=== PATIENT | male | born 1980 | race Two or more races ===

== ENCOUNTER 2017-06-17 12:22 | Inpatient (IN) | payer OTHER ==
[~2017-06-17] VITALS: Ht 182.9 cm; Wt 120.1 kg
[~2017-06-17 12:22] MED LIST: ASPI-621 PO; ATOR-2 PO; INSU100V8 SQ; LISI5TAB7 PO; METO25TA35 PO; TICA90TA PO
[2017-06-17] MEDS ORDERED: ASPIRIN 81 MG TABLET CHEW PO ONE (13:00)
[2017-06-17] MEDS ORDERED: ASPIRIN 81 MG TABLET CHEW ONE (13:07)
[2017-06-17 13:25] LABS: HEMATOCRIT 45.5 % (39.2-51.8); HEMOGLOBIN 15.6 g/dL (13.7-18.0); WHITE BLOOD COUNT 6.4 x10^3/uL (3.4-10)
[2017-06-17] MEDS ORDERED: NITROGLYCERIN SINGLE TAB 0.4 MG SL ONE (13:27)
[2017-06-17] MEDS ORDERED: NITROGLYCERIN SINGLE TAB 0.4 MG SL PRN (13:30)
[2017-06-17 13:37] LABS: BLOOD UREA NITROGEN 12 mg/dL (7-18)
[2017-06-17 13:44] LABS: IS PT STATUS REG ER OR PRE ER? YES
[2017-06-17] MEDS ORDERED: DOCUSATE 100 MG CAPSULE PO PRN ×2 (14:30→19:00)
[2017-06-17] MEDS ORDERED: SODIUM CHLORIDE FLUSH 10ML SYR IVF PRN (14:30)
[2017-06-17] MEDS ORDERED: LABETALOL 5MG/ML, 20ML IVPush PRN ×2 (14:30→19:00)
[2017-06-17] MEDS ORDERED: ZOLPIDEM 5MG TABLET PO PRN (14:30)
[2017-06-17] MEDS ORDERED: HYDROcodone/APAP 5/325 TABLET PO PRN (14:30)
[2017-06-17] MEDS ORDERED: ONDANSETRON 2MG/ML, 2ML IVPush PRN ×2 (14:30→19:00)
[2017-06-17] MEDS ORDERED: MORPHINE SULFATE 4 MG/ML, 1ML IVPush PRN (14:30)
[2017-06-17] MEDS ORDERED: ACETAMINOPHEN 325 MG TABLET PO PRN ×2 (14:30→19:00)
[2017-06-17] MEDS ORDERED: GUAIFENESIN/DM 200-20MG, 10ML UDC PO PRN (14:30)
[2017-06-17] MEDS ORDERED: NITROGLYCERIN 0.4 MG BOTTLE (25 TABS) SL PRN (15:00)
[2017-06-17 15:23] LABS: IS PT STATUS REG ER OR PRE ER? YES
[2017-06-17 16:00] VITALS: BP 136/89
[2017-06-17] MEDS: INSULIN REGULAR 100 UNITS/ML, 3ML VIAL SQ-INSULIN SCH ×2 (16:00→21:23)
[2017-06-17] MEDS: METOPROLOL TARTRATE 25 MG TABLET PO SCH (16:51)
[2017-06-17] MEDS: TICAGRELOR 90 MG TABLET PO SCH (16:51)
[2017-06-17 19:05] VITALS: BP 126/83
[2017-06-17 20:41] LABS: IS PT STATUS REG ER OR PRE ER? NO
[2017-06-17] MEDS ORDERED: SODIUM CHLORIDE FLUSH 10ML SYR IVF SCH (21:00)
[2017-06-17] MEDS: SODIUM CHLORIDE FLUSH 10ML SYR IVF SCH (21:19)
[2017-06-17] MEDS: INSULIN DETEMIR 100 UNITS/ML, PEN SQ-INSULIN SCH (21:20)
[2017-06-18] MEDS ORDERED: D5%-0.9% NACL 500 ML IV SCH (02:00)
[2017-06-18 02:48] VITALS: BP 119/75
[2017-06-18] MEDS: METOPROLOL TARTRATE 25 MG TABLET PO SCH (05:29)
[2017-06-18] MEDS ORDERED: ASPIRIN 81 MG TABLET EC PO SCH (06:00)
[2017-06-18 06:54] VITALS: BP 121/82
[2017-06-18] MEDS: INSULIN REGULAR 100 UNITS/ML, 3ML VIAL SQ-INSULIN SCH ×2 (07:00→11:00)
[2017-06-18] MEDS ORDERED: REGADENOSON 0.4 MG/5 ML SYRINGE ONE (07:40)
[2017-06-18] MEDS ORDERED: LISINOPRIL 5 MG TABLET PO SCH (09:00)
[2017-06-18] MEDS: TICAGRELOR 90 MG TABLET PO SCH (10:35)
[2017-06-18] MEDS: INSULIN DETEMIR 100 UNITS/ML, PEN SQ-INSULIN SCH (10:39)
[2017-06-18] MEDS: SODIUM CHLORIDE FLUSH 10ML SYR IVF SCH (10:40)
[2017-06-18] MEDS ORDERED: LISI5TAB7 PO (12:37)
[2017-06-18] MEDS ORDERED: FLU VACC QS2017-18 (36MOS+) UP/PF 0.5 ML IM-VACC ONE (13:30)
== END 2017-06-18 14:49 | disposition home or self-care (01) | DRG 305 ==
LOC: ED 14:39 → EDIP 15:25 → 5SO 15:43
PROVIDERS: ADMIT Internal Medicine; ATTEND Internal Medicine
DX: I16.0 Hypertensive urgency (principal); Z99.81 Dependence on supplemental oxygen; E11.9 Type 2 diabetes mellitus without complications; E66.9 Obesity, unspecified; I25.5 Ischemic cardiomyopathy; E78.5 Hyperlipidemia, unspecified; G47.33 Obstructive sleep apnea (adult) (pediatric); I25.10 Atherosclerotic heart disease of native coronary artery without angina pectoris; I25.2 Old myocardial infarction; Z68.38 Body mass index [BMI] 38.0-38.9, adult; Z79.4 Long term (current) use of insulin; Z91.19 Patient's noncompliance with other medical treatment and regimen; Z95.5 Presence of coronary angioplasty implant and graft; Z79.82 Long term (current) use of aspirin; Z79.899 Other long term (current) drug therapy; Z87.891 Personal history of nicotine dependence
CPT/HCPCS: 36415; 71020; 78452; 80048; 82040; 82962; 83880; 84484; 85025; 93005; 93017; 94660; J1815; J2785; A9502; C9898; J7042

== ENCOUNTER 2017-10-08 12:43 | Emergency (ER) | payer OTHER ==
[~2017-10-08] VITALS: Ht 182.9 cm; Wt 129.5 kg
[2017-10-08] MEDS ORDERED: ONDANSETRON 2MG/ML, 2ML ONE (13:51)
[2017-10-08] MEDS ORDERED: KETOROLAC 30 MG/1 ML ONE (13:51)
[2017-10-08] MEDS ORDERED: KETOROLAC 30 MG/1 ML IVPush ONE (14:00)
[2017-10-08] MEDS ORDERED: SODIUM CHLORIDE 0.9% 1,000ML IVBOLUS ONE (14:00)
[2017-10-08] MEDS ORDERED: ACETAMINOPHEN 500 MG TABLET PO ONE (14:00)
[2017-10-08] MEDS ORDERED: ONDANSETRON 2MG/ML, 2ML IVPush ONE (14:00)
[2017-10-08] MEDS ORDERED: SODIUM CHLORIDE FLUSH 10ML SYR IVF ONE (14:00)
[2017-10-08 14:06] LABS: RAPID INFLUENZA A Negative (Negative); RAPID INFLUENZA B Negative (Negative)
[2017-10-08] MEDS ORDERED: ACETAMINOPHEN 500 MG TABLET ONE (14:07)
[2017-10-08 14:19] LABS: BASOPHILS # (AUTO) 0.03 x10^3/uL (0-0.1); BASOPHILS % (AUTO) 1 % (0-1); EOSINOPHILS # (AUTO) 0.08 x10^3/uL (0-0.4); EOSINOPHILS % (AUTO) 1 % (1-7); LYMPHOCYTES # (AUTO) 1.45 x10^3/uL (1-3.4); LYMPHOCYTES % (AUTO) 27 % (22-44); MD NO; MEAN CORPUSCULAR HEMOGLOBIN 28.7 pg (27.5-34.5); MEAN CORPUSCULAR HGB CONC 34.1 g/dL (33.2-36.2); MEAN PLATELET VOLUME 7.9 fL (7.4-10.4); MONOCYTES # (AUTO) 0.59 x10^3/uL (0.2-0.8); MONOCYTES % (AUTO) 11 % (2-9); NEUTROPHILS # (AUTO) 3.26 x10^3/uL (1.8-6.8); NEUTROPHILS % (AUTO) 60 % (42-75); PLATELET COUNT 149 x10^3/uL (130-400); RED BLOOD COUNT 5.47 x10^6/uL (4.38-5.82); RED CELL DISTRIBUTION WIDTH 13.7 % (9.4-14.8)
[2017-10-08 14:32] LABS: ALBUMIN 3.9 g/dL (3.4-5.0); ANION GAP 7 mmol/L (5-15); CALCIUM 8.3 mg/dL (8.5-10.1); CHLORIDE 101 mmol/L (98-107); CREATININE 1.06 mg/dL (0.7-1.3)
[2017-10-08 15:12] VITALS: BP 113/70
== END 2017-10-08 15:19 | disposition home or self-care (01) ==
LOC: ED 13:30
DX: B34.9 Viral infection, unspecified (principal); E66.9 Obesity, unspecified; I10 Essential (primary) hypertension; I25.2 Old myocardial infarction; E11.9 Type 2 diabetes mellitus without complications
CPT/HCPCS: 36415; 71046; 80048; 82040; 85025; 87400; 96361; 96374; 96375; 99285; J1885; J2405; J7030

== ENCOUNTER 2018-11-21 12:03 | Day surgery (SDC) | payer OTHER ==
[2018-11-19 11:13] VITALS: BP 154/96
[2018-11-19 12:05] LABS: CHLORIDE 108 mmol/L (98-107)
[2018-11-19 12:14] LABS: ALANINE AMINOTRANSFERASE 48 U/L (12-78); ALKALINE PHOSPHATASE 65 U/L (45-117); ANION GAP 7 mmol/L (5-15); BILIRUBIN,TOTAL 0.6 mg/dL (0.2-1.0); CALCIUM 8.5 mg/dL (8.5-10.1); CREATININE 0.92 mg/dL (0.7-1.3); TOTAL PROTEIN 7.5 g/dL (6.4-8.2)
[~2018-11-21] VITALS: Ht 182.9 cm; Wt 130.7 kg
[~2018-11-21 12:03] MED LIST changes: +ASPI-496 PO; -ASPI-621 PO; +ASPI81TA45 PO; +ATOR80TA PO; +CETI-158 PO; +FENO160T PO; +METF500T17 PO
[2018-11-21] MEDS ORDERED: MIDAZOLAM 1 MG/ML, 2ML ONE (12:22)
[2018-11-21] MEDS ORDERED: FENTANYL PF 100 MCG/2ML ONE ×2 (12:22→14:58)
[2018-11-21] MEDS ORDERED: LACTATED RINGERS 1,000 ML IV SCH (12:50)
[2018-11-21] MEDS ORDERED: BUPIVACAINE/PF-EPI 0.5% 1:200K ONE (13:06)
[2018-11-21] MEDS ORDERED: BUPIVACAINE/PF 0.5% ONE (13:06)
[2018-11-21] MEDS ORDERED: LIDOCAINE-MPF 2% ,5ML ONE (13:07)
[2018-11-21] MEDS ORDERED: PROPOFOL 10 MG/ML, 20ML ONE (14:25)
[2018-11-21] MEDS ORDERED: CEFAZOLIN 1,000 MG ONE (14:25)
[2018-11-21] MEDS ORDERED: DEXAMETHASONE 4 MG/ML, 1ML ONE (14:25)
[2018-11-21] MEDS ORDERED: ONDANSETRON 2MG/ML, 2ML ONE (14:25)
[2018-11-21] MEDS ORDERED: OXYcodone 5 MG/5 ML ORAL.SOL UDC ONE (14:59)
[2018-11-21] MEDS ORDERED: FENTANYL PF 100 MCG/2ML IV PRN (15:00)
[2018-11-21] MEDS ORDERED: ACETAMINOPHEN 325 MG TABLET PO PRN (15:00)
[2018-11-21] MEDS ORDERED: PROMETHAZINE 25 MG/ML, 1ML IV PRN (15:00)
[2018-11-21] MEDS ORDERED: OXYcodone 5 MG/5 ML ORAL.SOL UDC PO PRN (15:00)
[2018-11-21] MEDS ORDERED: hydrALAzine 20 MG/ML, 1ML IV PRN (15:00)
[2018-11-21] MEDS ORDERED: ONDANSETRON 2MG/ML, 2ML IV PRN (15:00)
[2018-11-21] MEDS ORDERED: LABETALOL 5MG/ML, 20ML IV PRN (15:00)
[2018-11-21] MEDS ORDERED: ONDANSETRON ODT 8 MG PO PRN (15:00)
== END 2018-11-21 16:45 | disposition home or self-care (01) ==
LOC: OUT 12:03
PROVIDERS: ATTEND Orthopaedic Surgery
DX: G56.01 Carpal tunnel syndrome, right upper limb (principal); M65.331 Trigger finger, right middle finger; M65.341 Trigger finger, right ring finger; J45.909 Unspecified asthma, uncomplicated; E11.9 Type 2 diabetes mellitus without complications; I25.10 Atherosclerotic heart disease of native coronary artery without angina pectoris; I25.2 Old myocardial infarction; Z87.891 Personal history of nicotine dependence; Z79.84 Long term (current) use of oral hypoglycemic drugs
CPT/HCPCS: 26055; 36415; 64721; 80053; 82962; 93005; J0690; J1100; J2250; J2405; J2704; J3010; J7120; J3490

== ENCOUNTER → 2018-12-05 | Day surgery (SDC) | payer OTHER ==
[~2018-12-05] VITALS: Ht 182.9 cm; Wt 130.9 kg
[~2018-12-05] MED LIST changes: +ACETAMINOPHEN 325 MG TABLET PO PRN; +BUPIVACAINE/PF 0.5% ONE; +BUPIVACAINE/PF-EPI 0.5% 1:200K ONE; +FENTANYL PF 100 MCG/2ML IV PRN; +FENTANYL PF 100 MCG/2ML ONE; +HYDROmorphone 2 MG/ML, 1ML IVPush PRN; +LIDOCAINE-MPF 2% ,5ML ONE; +LORazepam 2 MG/ML, 1ML IVPush PRN; +METOCLOPRAMIDE 5 MG/ML, 2ML IV PRN; +MIDAZOLAM 1 MG/ML, 2ML ONE; +OXYcodone 5 MG/5 ML ORAL.SOL UDC PO PRN
== END | disposition home or self-care (01) ==
LOC: OUT 12:12
PROVIDERS: ATTEND Orthopaedic Surgery
DX: Z02.9 Encounter for administrative examinations, unspecified (principal)
CPT/HCPCS: J2250; J3010; J3490

== ENCOUNTER 2018-12-13 11:42 | Day surgery (SDC) | payer OTHER ==
[~2018-12-13] VITALS: Ht 182.9 cm; Wt 130.0 kg
[~2018-12-13 11:42] MED LIST changes: -ACETAMINOPHEN 325 MG TABLET PO PRN; -BUPIVACAINE/PF 0.5% ONE; -BUPIVACAINE/PF-EPI 0.5% 1:200K ONE; -FENTANYL PF 100 MCG/2ML IV PRN; -FENTANYL PF 100 MCG/2ML ONE; -HYDROmorphone 2 MG/ML, 1ML IVPush PRN; -LIDOCAINE-MPF 2% ,5ML ONE; -LORazepam 2 MG/ML, 1ML IVPush PRN; -METOCLOPRAMIDE 5 MG/ML, 2ML IV PRN; -MIDAZOLAM 1 MG/ML, 2ML ONE; -OXYcodone 5 MG/5 ML ORAL.SOL UDC PO PRN
[2018-12-13] MEDS ORDERED: LACTATED RINGERS 1,000 ML IV SCH (12:18)
[2018-12-13 12:19] VITALS: BP 133/89
[2018-12-13] MEDS ORDERED: FENTANYL PF 100 MCG/2ML ONE ×2 (13:56→14:06)
[2018-12-13] MEDS ORDERED: MIDAZOLAM 1 MG/ML, 2ML ONE ×2 (13:57→14:06)
[2018-12-13] MEDS ORDERED: PROPOFOL 10 MG/ML, 20ML ONE (14:08)
[2018-12-13] MEDS ORDERED: SUCCINYLCHOLINE 20 MG/ML, 10ML ONE (14:08)
[2018-12-13] MEDS ORDERED: ROCURONIUM 10MG/ML,5ML ONE (14:08)
[2018-12-13] MEDS ORDERED: BUPIVACAINE/PF 0.5% ONE (14:15)
[2018-12-13] MEDS ORDERED: LIDOCAINE 1%, 20ML ONE (14:15)
[2018-12-13] MEDS ORDERED: CEFAZOLIN 1,000 MG ONE (14:28)
[2018-12-13] MEDS ORDERED: ONDANSETRON 2MG/ML, 2ML ONE ×2 (14:34)
[2018-12-13] MEDS ORDERED: MIDAZOLAM 1 MG/ML, 2ML IV PRN (15:00)
[2018-12-13] MEDS ORDERED: HALOPERIDOL 5 MG/ML IV PRN (15:00)
[2018-12-13] MEDS ORDERED: ACETAMINOPHEN 325 MG TABLET PO PRN (15:00)
[2018-12-13] MEDS ORDERED: FENTANYL PF 100 MCG/2ML IV PRN (15:00)
[2018-12-13] MEDS ORDERED: EPHEDRINE 50 MG/ML, 1ML IVPush PRN (15:00)
[2018-12-13] MEDS ORDERED: PROMETHAZINE 25 MG/ML, 1ML IV PRN (15:00)
[2018-12-13] MEDS ORDERED: PROMETHAZINE 12.5 MG SUPP PR PRN (15:00)
[2018-12-13] MEDS ORDERED: OXYcodone 5 MG/5 ML ORAL.SOL UDC PO PRN (15:00)
[2018-12-13] MEDS ORDERED: DIAZEPAM 5 MG/ML, 2ML IVPush PRN (15:00)
[2018-12-13] MEDS ORDERED: hydrALAzine 20 MG/ML, 1ML IV PRN (15:00)
[2018-12-13] MEDS ORDERED: MEPERIDINE/PF 25MG/0.5ML IVPush PRN (15:00)
[2018-12-13] MEDS ORDERED: HYDROmorphone 2 MG/ML, 1ML IVPush PRN (15:00)
[2018-12-13] MEDS ORDERED: ALBUTEROL SULFATE 2.5 MG/3 ML NPPB PRN (15:00)
[2018-12-13] MEDS ORDERED: MORPHINE SULFATE 4 MG/ML, 1ML IVPush PRN (15:00)
[2018-12-13] MEDS ORDERED: ONDANSETRON 2MG/ML, 2ML IV PRN (15:00)
[2018-12-13] MEDS ORDERED: LABETALOL 5MG/ML, 20ML IV PRN (15:00)
[2018-12-13] MEDS ORDERED: ONDANSETRON ODT 8 MG PO PRN (15:00)
[2018-12-13] MEDS ORDERED: OXYcodone 5 MG/5 ML ORAL.SOL UDC ONE (15:21)
== END 2018-12-13 16:25 | disposition home or self-care (01) ==
LOC: OUT 11:42
PROVIDERS: ATTEND Orthopaedic Surgery
DX: G56.02 Carpal tunnel syndrome, left upper limb (principal); M65.332 Trigger finger, left middle finger; M65.342 Trigger finger, left ring finger; I25.10 Atherosclerotic heart disease of native coronary artery without angina pectoris; I25.2 Old myocardial infarction; E78.5 Hyperlipidemia, unspecified; E11.9 Type 2 diabetes mellitus without complications; I10 Essential (primary) hypertension; G47.33 Obstructive sleep apnea (adult) (pediatric); Z87.891 Personal history of nicotine dependence; Z72.89 Other problems related to lifestyle; Z98.890 Other specified postprocedural states; Z79.84 Long term (current) use of oral hypoglycemic drugs
CPT/HCPCS: 26055; 64721; 82962; J0330; J0690; J2250; J2405; J2704; J3010; J3490; J7120